=== PATIENT | female | born 1985 | race Caucasian/White ===

== ENCOUNTER 2019-01-17 10:37 | Inpatient (IN) | payer BC ==
[2019-01-17 11:20] LABS: Basophils % (A) 0 %; Eosinophils % (A) 1 %; HCT 31.5 % (34.0-46.0); HGB 11.1 gm/dL (11.4-16.0); Lymphocytes # (A) 1.4 k/uL (1.0-4.8); Lymphocytes % (A) 16 %; MCH 31.1 pg (25.0-35.0); MCHC 35.3 g/dL (31.0-37.0); MCV 88.1 fL (80.0-100.0); Mean Platelet Volume 7.5; Monocytes # (A) 0.4 k/uL (0-1.0); Monocytes % (A) 4 %; Neutrophils % (A) 78 %; Platelet Count 262 k/uL (150-450); Poikilocytosis Slight; RBC 3.57 m/uL (3.80-5.40); RDW 14.2 % (11.5-15.5); WBC 8.9 k/uL (3.8-10.6)
[2019-01-17 11:36] LABS: Appearance,Urine Clear (Clear); Bilirubin,Urine Negative (Negative); Blood,Urine Negative (Negative); Color,Urine Light Yellow; Glucose,Urine (UA) Negative (Negative); Ketones,Urine Negative (Negative); Leukocyte Esterase,Urine Negative (Negative); Nitrite,Urine Negative (Negative); PH, Urine 7.5 (5.0-8.0); Protein,Urine Negative (Negative); Specific Gravity,Urine 1.005 (1.001-1.035); Urobilinogen,Urine <2.0 mg/dL (<2.0)
[2019-01-17 11:38] LABS: ALT 28 U/L (9-52); AST 17 U/L (14-36); Blood Urea Nitrogen 5 mg/dL (7-17); LDH 476 U/L (313-618); Uric Acid 4.4 mg/dL (3.7-7.4)
[2019-01-17] MEDS ORDERED: LIDOCAINE 0.5% (PF) 5 MG/ML (50 ML SDV) SQ PRN (12:39)
[2019-01-17] MEDS ORDERED: OXYTOCIN 10 UNIT/ML 1 ML VIAL IM PRN (12:39)
[2019-01-17] MEDS ORDERED: TERBUTALINE 1 MG/ML VIAL SQ PRN (12:39)
[2019-01-17] MEDS ORDERED: PENICILLIN G POTASSIUM 5,000,000 UNIT in DEXTROSE 5% IN WATER 100 ML IVPB STA ×2 (12:39)
[2019-01-17] MEDS ORDERED: CARBOPROST TROMETHAMINE 250 MCG/ML 1 ML AMP IM PRN (12:39)
[2019-01-17] MEDS ORDERED: METHYLERGONOVINE 0.2 MG/ML 1 ML AMP IM PRN (12:39)
[2019-01-17] MEDS ORDERED: BUTORPHANOL 1 MG/ML 1 ML VIAL IV PRN (12:41)
[2019-01-17] MEDS ORDERED: OXYTOCIN 30 UNITS/500 ML NS 30 UNIT in SALINE 1 500ML.BAG IV SCH (12:45)
[2019-01-17] MEDS: LACTATED RINGERS 1,000 ML IV SCH ×2 (13:06→21:06)
[2019-01-17 14:14] VITALS: BMI 28.0
[2019-01-17] MEDS ORDERED: LABETALOL 5 MG/ML VIAL MDV IVP PRN ×2 (14:57)
[2019-01-17] MEDS ORDERED: hydrALAZINE HCL 20 MG/ML 1 ML VIAL IVP PRN ×2 (14:57)
[2019-01-17] MEDS ORDERED: LABETALOL SYRINGE 5 MG/ML IVP PRN ×2 (16:09)
[2019-01-17] MEDS ORDERED: MAGNESIUM SULFATE-WATER PMX 4 GM in WATER FOR INJECTION 1 100ML.BAG IVPB ONE (16:15)
[2019-01-17] MEDS: MAGNESIUM SULFATE-WATER PMX 20 GM in WATER FOR INJECTION 1 500ML.BAG IV SCH (16:34)
[2019-01-17] MEDS: PENICILLIN G POTASSIUM 2,500,000 UNIT in DEXTROSE 5% IN WATER 100 ML IVPB SCH ×4 (17:45→21:06)
--- NOTE | 2019-01-17 18:38 | P.HPOB ---
History of Present Illness H&P Date: 01/17/19 Chief Complaint: 37-2/7 weeks, severe preeclampsia The patient is a 33-year-old 11 para 7037 admitted at 37-2/7 weeks with dating established early in the in another practice. She transferred care to our practice at approximately 25 weeks of . She carries a history of multiple episodes of -induced hypertension and 7 preeclampsia, typically at full-term. Her to this point has been relatively uncomplicated though she is group B strep positive. She was seen in the office today at which time her blood pressure was mildly elevated. She was sent to labor and delivery for evaluation at which time labs were within normal limits. However, she developed increasingly elevated blood pressures in the range of 180/80-90 and required intervention with hydralazine and then subsequently labetalol as well which has not controlled her blood pressures. She was additionally started on magnesium sulfate secondary to her significantly high blood pressures. Pitocin augmentation has been started and she has undergone artificial rupture of membranes. On labor and delivery, all signs reassuring with category 1 heart tones. Amniotic fluid is clear. Antibiotics have been on board for 4 hours at this time. Obstetrical history: 11 para 78054 previous term normal vaginal deliveries and 3 previous early miscarriages. Current statistics are listed in history of present illness. EDC of 02/05/2019 was established at a previous practice by last menstrual period and confirmed by second trimester ultrasound. Laboratory workup demonstrates a blood type of B+ with a negative antibody screen. Rubella status is immune. Remainder of the laboratory workup was within normal limits. Early Glucola and second trimester Glucola were within normal limits and group B strep status is positive. Gynecologic history: Unremarkable with no history of any infections to include STDs. Review of Systems Review of systems is confined to history of present illness. 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 Smoking Status: Never smoker Past Alcohol Use History: None Reported Past Drug Use History: None Reported - Past Family History Mother Family Medical History: No Reported History Medications and Allergies Home Medications Medication Instructions Recorded Confirmed Type Pnv,Calcium 72/Iron/Folic Acid 1 each PO DAILY 01/17/19 01/17/19 History [ Plus Tablet] Allergies Allergy/AdvReac Type Severity Reaction Status Date / Time No Known Allergies Allergy Verified 01/17/19 10:48 Exam Vital Signs Temp Pulse Resp BP Pulse Ox 01/17/19 12:16 97.3 F L 79 16 198/95 100 Intake and Output 01/17/19 01/17/19 01/17/19 06:59 14:59 22:59 Other: Weight 76.657 kg In general, this is a well-developed, well-nourished white female in no acute distress. Her heart has a regular rhythm and rate without murmur. Her lungs are clear to auscultation bilaterally in all mart. Her abdomen is gravid, nondistended, has normal active bowel sounds, is soft, nontender, and without any palpable masses aside from uterine fundus. Her extremities are without any cyanosis, clubbing, or significant edema and are nontender to palpation bilaterally. Digital cervical examination demonstrates her cervix to be 3 cm dilated, 70% effaced, with the vertex in presentation at -2 station. Artificial rupture of membranes is carried out demonstrating a significant amount of clear fluid. Results Result Diagrams: 01/17/19 10:59 01/17/19 10:59 Abnormal Lab Results - Last 24 Hours (Table) 01/17/19 01/17/19 01/17/19 Range/Units 10:59 10:59 11:00 RBC 3.57 L (3.80-5.40) m/uL Hgb 11.1 L (11.4-16.0) gm/dL Hct 31.5 L (34.0-46.0) % BUN 5 L (7-17) mg/dL Creatinine 0.47 L (0.52-1.04) mg/dL U Random Total Protein 18 H (<12) mg/dL Assessment and Plan (1) Preeclampsia Current Visit: Yes Status: Acute Code(s): O14.90 - UNSPECIFIED PRE- ECLAMPSIA, UNSPECIFIED TRIMESTER SNOMED Code(s): 046272995 (2) Group B streptococcal infection in Current Visit: Yes Status: Acute Code(s): O98.819 - OTH MATERNAL INFEC/PARASTC DISEASES COMP PREG, UNSP TRI; B95.1 - STREPTOCOCCUS, GROUP B, CAUSING DISEASES CLASSD [facility] SNOMED Code(s): 962933024 Plan: The patient has been admitted for induction of labor. As noted above, her has been uncomplicated until today at which time blood pressures were found to be elevated. They have continued to be significantly elevated on labor and delivery until treated with both hydralazine and subsequently labetalol. Blood pressures are now stable. Magnesium sulfate has been started for the diagnosis of severe preeclampsia. Pitocin augmentation has been started. She will have close maternal and surveillance and expectant management will be practiced. She is a candidate for IV or epidural analgesia should she choose, but has typically not requested either in previous pregnancies.
[2019-01-17] MEDS ORDERED: LANOLIN CREAM 5 GM TUBE TOPICAL PRN (21:01)
[2019-01-17] MEDS ORDERED: HYDROCORTISONE 2.5% RECTAL CREAM 30 GM TUBE RECTAL PRN (21:01)
[2019-01-17] MEDS ORDERED: WITCH HAZEL 1 EACH MED..PAD TOPICAL PRN (21:01)
[2019-01-17] MEDS ORDERED: BENZOCAINE/MENTHOL SPRAY 1 GM/SPRAY AEROSOL TOPICAL PRN (21:01)
[2019-01-17] MEDS ORDERED: SIMETHICONE 80 MG CHEWABLE PO PRN (21:01)
[2019-01-17] MEDS ORDERED: HYDROcodone/APAP 5-325MG 1 EACH TAB PO PRN (21:01)
[2019-01-17] MEDS ORDERED: ACETAMINOPHEN TAB 325 MG TAB PO PRN (21:01)
[2019-01-17] MEDS ORDERED: diphenhydrAMINE 50 MG CAP PO PRN (21:01)
[2019-01-17] MEDS ORDERED: ZOLPIDEM 5 MG TAB PO PRN (21:01)
[2019-01-17] MEDS ORDERED: diphenhydrAMINE 50 MG/ML 1 ML VIAL IVP PRN ×2 (21:01)
[2019-01-17] MEDS ORDERED: HYDROcodone/APAP 7.5-325MG 1 EACH TAB PO PRN (21:01)
[2019-01-17] MEDS ORDERED: diphenhydrAMINE 25 MG CAP PO PRN (21:01)
--- NOTE | 2019-01-17 21:07 | P.PROBDLV ---
Vaginal Delivery Note - . Vaginal Delivery Note: The patient is a 33-year-old 11 para 7037 admitted at 37-2/7 weeks by good dating parameters. She is admitted with a diagnosis of severe preeclampsia based upon blood pressures ranging in the 180/80-90 range requiring intervention with first hydralazine, then labetalol. Magnesium sulfate was started for seizure prophylaxis. Because of group B strep positivity, antibiotic prophylaxis was started and Pitocin begun as well. She did not undergo artificial rupture of membranes until 4 hours following the dose of antibiotic. She then fairly quickly went into active labor and progressed through the active phase very quickly to complete and then pushed over the course of 1 contraction to a normal spontaneous vaginal delivery of a viable 7 lbs. 2 oz. baby girl with Apgars of 9 at 1 minute and 10 at 5 minutes delivered in the left occiput anterior position. The placenta was delivered spontaneously, intact, and grossly normal with a grossly normal, centrally inserted three-vessel cord. There were no lacerations of the perineum, vagina, or cervix. Estimated blood loss for the entire case was approximately 100 mL. There were no complications. All sponge, instrument, and needle counts were correct. Both mother and infant are resting comfortably in recovery. Magnesium sulfate will be continued for 24 hours following delivery.
[2019-01-17] MEDS ORDERED: OXYTOCIN 20 UNITS/1000 ML NS 1,000 ML IV SCH (21:15)
[2019-01-18] MEDS: MAGNESIUM SULFATE-WATER PMX 20 GM in WATER FOR INJECTION 1 500ML.BAG IV SCH ×2 (03:03→13:27)
--- NOTE | 2019-01-18 08:27 | P.PNOBGVD ---
Subjective - Subjective Principal diagnosis: PPD 1 Interval history: Patient did well overnight. She does note a mild headache. She remained on magnesium sulfate infusion secondary to preeclampsia. Blood pressures this morning 130s to 150s over 70s to 80s. Patient denies discomfort this morning and states she is overall feeling well. I/O's are reviewed and normal this morning. Patient reports: Reports appetite normal, Reports pain well controlled, Denies nauseated [place]: doing well (At the bedside) Objective - Latest Vital Signs Latest vital signs: Vital Signs Temp Pulse Resp BP Pulse Ox 01/18/19 07:00 74 15 151/85 98 01/18/19 06:00 84 15 131/72 98 01/18/19 05:00 82 16 111/56 98 01/18/19 04:00 98 F 88 16 139/70 99 01/18/19 03:00 87 15 138/76 98 01/18/19 02:00 92 15 140/81 98 01/18/19 01:00 85 15 118/59 98 01/18/19 00:00 99.7 F H 96 15 136/76 98 01/17/19 23:00 89 15 143/73 98 01/17/19 22:30 82 15 150/79 98 01/17/19 22:00 76 15 150/79 99 01/17/19 21:45 81 15 154/83 98 01/17/19 21:30 81 15 154/83 98 01/17/19 21:15 84 15 153/88 98 01/17/19 21:00 99.9 F H 89 15 156/93 01/17/19 12:16 97.3 F L 79 16 198/95 100 Intake and Output 01/17/19 01/18/19 01/18/19 22:59 06:59 14:59 Intake Total 1200 Output Total 1300 1500 Balance -1300 -300 Intake: Intake, IV Titration 1200 Amount Magnesium Sulfate-Water 500 Pmx 20 gm In Water For Injection 1 500ml.bag @ 2 GM/HR 50 mls/hr IV .Q10H RUTH Rx#:[id number] Oxytocin 20 Units/1000 ml 700 Ns 1,000 ml @ Per Protocol IV .Q0M RUTH Rx#: [id number] Output: Urine 1200 1500 Estimated Blood Loss 100 Other: # Voids 2 - Exam Lungs: bilateral: normal Extremities: Present: normal Abdomen: Present: normal appearance, soft Uterus: Present: normal, firm - Labs Labs: Abnormal Lab Results - Last 24 Hours (Table) 01/17/19 01/17/19 01/17/19 Range/Units 10:59 10:59 11:00 RBC 3.57 L (3.80-5.40) m/uL Hgb 11.1 L (11.4-16.0) gm/dL Hct 31.5 L (34.0-46.0) % BUN 5 L (7-17) mg/dL Creatinine 0.47 L (0.52-1.04) mg/dL U Random Total Protein 18 H (<12) mg/dL Assessment and Plan (1) Advanced maternal age (AMA) in Current Visit: Yes Status: Acute Code(s): MFK3188 - SNOMED Code(s): 233510955 (2) Group B streptococcal infection in Current Visit: Yes Status: Acute Code(s): O98.819 - OTH MATERNAL INFEC/PARASTC DISEASES COMP PREG, UNSP TRI; B95.1 - STREPTOCOCCUS, GROUP B, [facility] Code(s): 964428268 (3) Normal spontaneous vaginal delivery Current Visit: Yes Status: Acute Code(s): O80 - ENCOUNTER FOR FULL-TERM UNCOMPLICATED DELIVERY SNOMED Code(s): 88031308 (4) Preeclampsia Current Visit: Yes Status: Acute Code(s): O14.90 - UNSPECIFIED PRE- ECLAMPSIA, UNSPECIFIED TRIMESTER SNOMED Code(s): 700353696 Plan: Will continue magnesium sulfate infusion for 24 hours total, awaiting preeclampsia labs this morning. Patient does look well overall this morning and I anticipate she will be able to go home tomorrow morning.
[2019-01-18 08:41] LABS: ALT 20 U/L (9-52); AST 17 U/L (14-36); Blood Urea Nitrogen 7 mg/dL (7-17); LDH 514 U/L (313-618)
[2019-01-18 08:45] LABS: Basophils % (A) 0 %; Eosinophils # (A) 0.1 k/uL (0-0.7); Eosinophils % (A) 1 %; HCT 29.7 % (34.0-46.0); HGB 10.4 gm/dL (11.4-16.0); Lymphocytes # (A) 1.7 k/uL (1.0-4.8); Lymphocytes % (A) 11 %; MCH 31.1 pg (25.0-35.0); MCHC 35.1 g/dL (31.0-37.0); MCV 88.6 fL (80.0-100.0); Mean Platelet Volume 7.5; Monocytes # (A) 0.6 k/uL (0-1.0); Monocytes % (A) 4 %; Neutrophils # (A) 12.2 k/uL (1.3-7.7); Neutrophils % (A) 83 %; Platelet Count 283 k/uL (150-450); RBC 3.35 m/uL (3.80-5.40); RDW 14.1 % (11.5-15.5); WBC 14.7 k/uL (3.8-10.6)
[2019-01-18] MEDS: SENNOSIDES-DOCUSATE SODIUM 1 EACH TAB PO SCH (19:45)
[2019-01-18] MEDS: LABETALOL 100 MG TAB PO SCH ×2 (20:53→22:56)
--- NOTE | 2019-01-18 23:20 | P.PN ---
Subjective Progress Note Date: 01/18/19 Principal diagnosis: day #1 Patient denies headache, visual changes, or right upper quadrant pain. Objective - Vital Signs Vital signs: Vital Signs Temp 98.2 F 01/18/19 19:48 Pulse 166 H 01/18/19 19:48 Resp 16 01/18/19 19:48 BP 154/87 01/18/19 16:00 Pulse Ox 99 01/18/19 19:48 Intake & Output 01/18/19 01/18/19 01/19/19 06:59 18:59 06:59 Intake Total 1200 1380 Output Total 2400 2300 Balance -1200 -920 Intake: IV 680 Invasive Line 1 80 Lactated Ringers 1,000 ml 600 @ 20 mls/hr IV .Q24H RUTH Rx#:[id number] Intake, IV Titration 1200 700 Amount Magnesium Sulfate-Water 500 500 Pmx 20 gm In Water For Injection 1 500ml.bag @ 2 GM/HR 50 mls/hr IV .Q10H RUTH Rx#:[id number] Magnesium Sulfate-Water 200 Pmx 4 gm In Water For Injection 1 100ml.bag @ 300 mls/hr IVPB ONCE ONE Rx#:[id number] Oxytocin 20 Units/1000 ml 700 Ns 1,000 ml @ Per Protocol IV .Q0M RUTH Rx#: [id number] Output: Urine 2300 2300 Estimated Blood Loss 100 Other: # Voids 2 2 - Constitutional General appearance: Present: average body habitus, cooperative - EENT Eyes: Present: PERRLA ENT: Present: hearing grossly normal - Neck Neck: Present: normal ROM Thyroid: bilateral: normal size - Respiratory Respiratory: right: CTA - Cardiovascular Rhythm: regular - Gastrointestinal General gastrointestinal: Present: normal bowel sounds - Genitourinary Genitourinary Comment(s): Fundus firm, midline, symmetric, 18 week size, nontender. - Integumentary Integumentary Comment(s): Trace peripheral edema. 3+ reflexes bilaterally, no clonus. Integumentary: Present: normal - Neurologic Neurologic: Present: CNII-XII intact - Musculoskeletal Musculoskeletal: Present: gait normal, strength equal bilaterally - Psychiatric Psychiatric: Present: A&O x's 3, appropriate affect, intact judgment & insight - Labs CBC & Chem 7: 01/18/19 08:18 01/18/19 08:18 Labs: Abnormal Lab Results - Last 24 Hours (Table) 01/18/19 01/18/19 Range/Units 08:18 08:18 WBC 14.7 H (3.8-10.6) k/uL RBC 3.35 L (3.80-5.40) m/uL Hgb 10.4 L (11.4-16.0) gm/dL Hct 29.7 L (34.0-46.0) % Neutrophils # 12.2 H (1.3-7.7) k/uL Creatinine 0.43 L (0.52-1.04) mg/dL Assessment and Plan Assessment: 24 hours , gestational hypertension, now hypertensive status post 24 hours of magnesium therapy. Plan: Additional 100 mg of labetolol orally now. Change dosage to 200 mg orally, twice a day, next dose due at 9 AM tomorrow morning. Continue care. Possible discharge home tomorrow pending progress. Time with Patient: Less than 30
[2019-01-19] MEDS ORDERED: LABETALOL 200 MG TAB PO SCH (09:00)
--- NOTE | 2019-01-19 09:30 | P.DS ---
Providers Date of admission: 01/17/19 12:27 Expected date of discharge: 01/19/19 Attending physician: Alexandra Nichols Primary care physician: Stated None Hospital Course: This is a 33-year-old female 11 para 7037 EDC 02/05/2019 at 37-2/7 weeks' gestation. Patient was admitted as a direct admit from the office with elevated blood pressures. She has a history of preeclampsia in the past. 24- hour urine had revealed increased proteinuria. Blood type is B+, rubella status immune. Group B strep cultures positive. Please see dictated history and physical for details. Artificial amniorrhexis revealed clear fluid. Patient progressed and delivered vaginally a liveborn female infant with scores of 9 and 10 at one and 5 minutes respectively. weighed 7 lbs. 2 oz. or 3230 g. Estimated blood loss recorded at 100 mL, no lacerations noted. Please see dictated delivery note for details. On admission blood pressure was 180/87. Labetalol was started, 100 mg twice daily. Pressures remained somewhat elevated, and increased the labetalol dose to 200 mg twice daily. This morning the patient feels well. She has 2+ lower extremity reflexes. She has no edema. She has no right upper quadrant pain, headache, or visual changes. Minimal lochia rubra is noted. Breast-feeding is going well. Chest is clear in all mart. Blood pressures will be monitored through the morning, and patient will be discharged home later today pending normalization of pressures. I have given her prescription for labetalol 200 mg to continue 1 pill twice daily. She will take her blood pressures at home and record them 1-2 times daily. She will call with any headache, visual changes or right upper quadrant pain. She will call with any fevers shakes or chills, foul smelling or copious lochia, with any pain not alleviated by [id number] Motrin products, or indeed with any concerns. She will follow-up in the office in 1 week for blood pressure check and labetalol management as appropriate. Patient Condition at Discharge: Good Plan - Discharge Summary Discharge Rx Participant: No New Discharge Prescriptions: No Action Pnv,Calcium 72/Iron/Folic Acid [ Plus Tablet] 1 each PO DAILY Discharge Medication List Pnv,Calcium 72/Iron/Folic Acid [ Plus Tablet] 1 each PO DAILY 01/17/19 [History] Follow up Appointment(s)/Referral(s): Alexandra Nichols DO [Doctor of Osteopathic Medicine] - 1 Week Discharge Disposition: HOME SELF-CARE
[2019-01-19] MEDS: SENNOSIDES-DOCUSATE SODIUM 1 EACH TAB PO SCH (22:02)
[2019-01-20] MEDS ORDERED: hydrALAZINE HCL 20 MG/ML 1 ML VIAL IVP PRN ×2 (00:18)
[2019-01-20] MEDS ORDERED: LABETALOL SYRINGE 5 MG/ML IVP PRN (00:18)
[2019-01-20] MEDS: SENNOSIDES-DOCUSATE SODIUM 1 EACH TAB PO SCH ×3 (01:06→19:16)
[2019-01-20] MEDS: hydrALAZINE HCL 25 MG TAB PO SCH ×3 (01:13→16:02)
--- NOTE | 2019-01-20 01:27 | P.CONS ---
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 She was seen in labor and deliver and required IV hydralazine and labetalol to control her blood pressures. She was started on magnesium sulfate due to elevated blood pressure. She had a vaginal delivery on 01/17 and magnesium sulfate was continued for an additional 24 hours. She was started on 100 mg of labetalol but remained hypertensive and this was increased to 200mg. This was ineffective and she was transitioned to nifedipine xL on the evening of 01/19. Over the courseof the evening of 01/19 her BP elevated to approximately 185/110 requiring IV hydralazine and we were consulted for hypertensive management. Patient seen and examined at bedside. She is feeling well and states that she does not feel like she just delivered a baby. She denies and headache, chest pain, or shortness of breath. She is not having any numbness of tingling in her hands or arms. She has no other complaints at this time. She does breast feed and plans to keep breast feeding. She has a hx of preeclampsia in the past but has never had to be on oral medications for blood pressure. She denies any essential HTN. She has not family hx of HTN or cardiac disease. She has no pain at this time and has not needed any pain medications. She denies any anxiety. She has not need able to sleep. Review of Systems Pertinent positives and negatives as discussed in HPI, a complete review of systems was performed and all other systems are negative. 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 - Past Family History Mother Family Medical History: No Reported History Additional Family Medical History / Comment(s): Denies any family hx of HTN or cardiac disease Medications and Allergies Home Medications Medication Instructions Recorded Confirmed Type Pnv,Calcium 72/Iron/Folic Acid 1 each PO DAILY 01/17/19 01/17/19 History [ Plus Tablet] Allergies Allergy/AdvReac Type Severity Reaction Status Date / Time No Known Allergies Allergy Verified 01/17/19 10:48 Physical Exam Osteopathic Statement: *. No significant issues noted on an osteopathic structural exam other than those noted in the History and Physical/Consult. Vitals: Vital Signs Temp Pulse Resp BP BP 01/19/19 22:01 153/90 01/19/19 20:00 76 152/82 01/19/19 18:14 73 140/73 01/19/19 16:15 159/77 152/84 01/19/19 14:19 172/83 142/88 01/19/19 12:00 137/67 158/84 01/19/19 10:26 141/93 01/19/19 08:00 98.2 F 67 16 141/87 01/19/19 05:39 153/92 01/19/19 04:00 136/78 01/19/19 02:11 136/76 Intake and Output 01/19/19 01/19/19 01/20/19 14:59 22:59 06:59 Other: # Voids 1 2 General: non toxic, no distress, appears at stated age, normal weight Derm: no unusual rashes/lesions no unusual ecchymoses, warm, dry Head: atraumatic, normocephalic, symmetric Eyes: EOMI, no lid lag, anicteric sclera, ENT: Nose and ears atraumatic, no thrush, no pharyngeal erythema Neck: No thyromegaly, no cervical lymphadenopathy, trachea midline, supple Mouth: no lip lesion, mucus membranes moist Cardiovascular: S1S2 reg, no murmur, positive posterior tibial pulse bilateral, trace edema, capillary refill less than 2 seconds Lungs: CTA bilateral, no rhonchi, no rales , no accessory muscle use Abdominal: soft, nontender to palpation, no guarding, no appreciable organomegaly, normal bowel sounds Ext: no gross muscle atrophy, muscle strength 5 out of 5 in all 4 extremities grossly, no contractures, Neuro: CN II-XI grossly intact, light touch intact all 4 extremities, reflexes 3/4 b/l patellar Psych: Alert, oriented, appropriate affect Results CBC & Chem 7: 01/18/19 08:18 01/18/19 08:18 Assessment and Plan Assessment: Preeclampsia - Continue with nifedipine - given 5 mg of IV hydralazine at time of consult. BP still elevated at 172 but decreased 20 minutes later. Start Hydralazine 25 mg TID now as this is easy to titrate and safe in breast feeding. - Follow blood pressures closely. May need to increase dose later today if remains elevated - Patient will take blood pressures at home with monitor. - Follow up with Dr. De La [facility] from [facility] after discharge. Anticipate that BP should normalize over the course of 12 weeks, if does not she may have a component of essential HTN. - Consider parameters for hydralazine on discharge. Advanced maternal age Thank you for allowing us to participate in the care of this patient. Do not he sitate to contact us with questions. Someone can be reached from the [facility] [place] [facility] hospitalist group at all hours of the day at [phone].
--- NOTE | 2019-01-20 08:46 | P.PN ---
Subjective Progress Note Date: 01/20/19 Principal diagnosis: day #3, severe preeclampsia This is a 33-year-old white female 11 para 8038, status post induction for severe preeclampsia and vaginal . Patient required IV hydralazine on admission, but went on to deliver vaginally a liveborn female . She was treated with magnesium sulfate for 24 hours. Her blood pressure remained high after delivery, she was started on labetalol 100 mg twice daily orally. This is increased to 200 mg twice daily. By pressures still remained high, 160s to 180s over the 90-100 range. Medication was changed to Procardia 60 mg XL once daily. Again blood pressures remained elevated and I consulted the [facility] hospitalist team for their recommendation. IV hydralazine once again was given, and the patient was placed on oral hydralazine 25 mg 3 times daily. Discharge was scheduled for yesterday, but was canceled subsequent to continued hypertension. This morning the patient feels well. She is slightly hyperreflexic at 3+, no clonus, otherwise physical exam is within normal limits, chest is clear, there is no peripheral edema. [place] is doing well. Patient denies headache, visual changes or right upper quadrant pain, she is anxious for discharge home secondary to 7 other children a t home. At this time I believe she is in stable condition for discharge home. She is a very reliable patient, a telemetry nurse, and understands to call with any headache, visual changes, or right upper quadrant pain. She is given a prescription for Procardia 60 mg XL, 1 by mouth at 9 AM, hydrala zine 25 mg 3 times a day, and Anusol HC suppositories to use as needed. Patient has a sphygmomanometer at home and will take her blood pressure is 1-2 times daily, right them down, and bring them to the office in 1 week for follow-up. [place] will follow-up with fingerer as recommended. Objective - Vital Signs Vital signs: Vital Signs Temp 98 F 01/20/19 00:00 Pulse 71 01/20/19 00:00 Resp 16 01/20/19 00:00 BP 138/87 01/20/19 06:53 Pulse Ox 98 01/20/19 00:00 Intake & Output 01/19/19 01/20/19 01/20/19 18:59 06:59 18:59 Other: # Voids 2 - Constitutional General appearance: Present: average body habitus, cooperative - EENT Eyes: Present: PERRLA ENT: Present: hearing grossly normal - Respiratory Respiratory: bilateral: CTA - Cardiovascular Rhythm: regular - Gastrointestinal Gastrointestinal Comment(s): Fundus firm, midline, symmetric, 18 week size - Integumentary Integumentary: Present: normal - Neurologic Neurologic Comment(s): +3 lower extremity reflexes, no clonus, no edema. Neurologic: Present: CNII-XII intact - Musculoskeletal Musculoskeletal: Present: gait normal, generalized weakness, strength equal bilaterally - Psychiatric Psychiatric: Present: A&O x's 3, appropriate affect, intact judgment & insight - Labs CBC & Chem 7: 01/18/19 08:18 04 08:18 Assessment and Plan Assessment: Status post vaginal delivery 3 days ago with severe preeclampsia, residual hypertension. Now controlled on to medications orally. Plan: Continue blood pressure checks today, likely discharge home later this evening. I have given her 3 prescriptions, Anusol HC suppositories to be used as needed, Procardia XL 60 mg to be taken once daily at 9 AM, hydralazine 25 mg to be taken orally 3 times a day. I have reviewed with this patient multiple options for contraception, and and strongly recommending no further pregnancies. She will follow-up with her primary roll skinner in the office in 1 week with blood pressure logs from home. Preeclamptic signs and symptoms, as well as blood pressure parameters have been reviewed with the patient in detail. Time with Patient: Greater than 30
[2019-01-20] MEDS: IBUPROFEN 600 MG TAB PO PRN ×2 (10:52→17:39)
[2019-01-20 11:32] LABS: Basophils % (A) 0 %; Eosinophils # (A) 0.2 k/uL (0-0.7); Eosinophils % (A) 1 %; HCT 35.7 % (34.0-46.0); Lymphocytes % (A) 15 %; MCHC 33.7 g/dL (31.0-37.0); MCV 89.2 fL (80.0-100.0); Mean Platelet Volume 6.8; Monocytes # (A) 0.5 k/uL (0-1.0); Monocytes % (A) 3 %; Neutrophils # (A) 10.7 k/uL (1.3-7.7); Neutrophils % (A) 79 %; Platelet Count 320 k/uL (150-450); RBC 4.01 m/uL (3.80-5.40); RDW 13.7 % (11.5-15.5); WBC 13.5 k/uL (3.8-10.6)
[2019-01-20 11:42] LABS: ALT 24 U/L (9-52); AST 18 U/L (14-36)
--- NOTE | 2019-01-20 14:49 | P.PN ---
Progress Note - Text Progress Note Date: 01/20/[address] Galvez BP seems better controlled this morning will continue to monitor into afternoon prescriptions sent for hydralazine and procardia
[2019-01-20] MEDS ORDERED: NIFEdipine XL 30 MG TAB.ER.24 PO STA (19:13)
[2019-01-20 22:50] VITALS: RESP 16
[2019-01-21] MEDS: IBUPROFEN 600 MG TAB PO PRN (03:04)
[2019-01-21 06:20] LABS: ALT 33 U/L (9-52); AST 26 U/L (14-36); Alkaline Phosphatase 90 U/L (38-126); Anion Gap 11 mmol/L; Blood Urea Nitrogen 10 mg/dL (7-17); Calcium 9.4 mg/dL (8.4-10.2); Carbon Dioxide 22 mmol/L (22-30); Chloride 106 mmol/L (98-107); Glucose 90 mg/dL (74-99); Potassium 3.4 mmol/L (3.5-5.1); Sodium 139 mmol/L (137-145); Total Bilirubin 0.3 mg/dL (0.2-1.3); Total Protein 6.9 g/dL (6.3-8.2)
[2019-01-21] MEDS ORDERED: LABETALOL 100 MG TAB PO SCH (08:00)
--- NOTE | 2019-01-21 08:29 | P.DS ---
Providers Date of admission: 01/17/19 12:27 Expected date of discharge: 01/21/19 Attending physician: Alexandra Nichols Consults: 01/20/19 00:12 Consult Physician Routine Consulting Provider: Anh Paez Consult Reason/Comments: elevated blood pressures Do you want consulting provider notified?: Yes, Notify in am Primary care physician: Stated None - Discharge Diagnosis(es) (1) Advanced maternal age (AMA) in Current Visit: Yes Status: Acute (2) Group B streptococcal infection in Current Visit: Yes Status: Acute (3) Normal spontaneous vaginal delivery Current Visit: Yes Status: Acute (4) Preeclampsia Current Visit: Yes Status: Acute Hospital Course: This is a pleasant 33-year-old 11 para [id number] that was admitted at 37-2/7 weeks with gestational hypertension. Patient has a history of this with her prior deliveries in addition. Patient was admitted Pitocin induction was begun patient progressed to complete and had a normal spontaneous vaginal delivery of a viable female 7 lbs. 2 oz. patient's post course has been complicated by severe preeclampsia and inability to control blood pressures. Eventually internal medicine was consulted and blood pressure medications were changed to Procardia. Patient is feeling well this morning she denies headache right upper quadrant pain swelling is improving. Overall patient looks well and she does wish to be discharged home. She is proceeding without difficulty she is ambulating and voiding without difficulty and she denies nausea or vomiting. Patient Condition at Discharge: Good Plan - Discharge Summary Discharge Rx Participant: No New Discharge Prescriptions: New hydrALAZINE HCL [Apresoline] 25 mg PO TID #90 tab NIFEdipine XL [Procardia XL] 60 mg PO DAILY #30 tab.er.24 No Action Pnv,Calcium 72/Iron/Folic Acid [ Plus Tablet] 1 each PO DAILY Discharge Medication List Pnv,Calcium 72/Iron/Folic Acid [ Plus Tablet] 1 each PO DAILY 01/17/19 [History] NIFEdipine XL [Procardia XL] 60 mg PO DAILY #30 tab.er.24 01/20/19 [Rx] hydrALAZINE HCL [Apresoline] 25 mg PO TID #90 tab 01/20/19 [Rx] Follow up Appointment(s)/Referral(s): Adriana De La Cruz MD [REFERRING] - 1 Week Alexandra Nichols DO [Doctor of Osteopathic Medicine] - 1 Week Care Plan Goals (MU): continue to monitor blood pressure at home BP meds prescription sent to preferred pharmacy Discharge Disposition: HOME SELF-CARE
[2019-01-21] MEDS ORDERED: NIFEdipine XL 90 MG TAB.ER.24 PO SCH (09:00)
[2019-01-21] MEDS: SENNOSIDES-DOCUSATE SODIUM 1 EACH TAB PO SCH (09:10)
[2019-01-21 10:06] VITALS: PULSE 90
--- NOTE | 2019-01-21 11:10 | P.PN ---
Subjective Progress Note Date: 01/21/19 Patient seen and examined at bedside breast-feeding her , denies any headache, denies any right upper quadrant pain. Patient ready for discharge. Patient blood pressure have been above goal This morning. Objective - Vital Signs Vital signs: Vital Signs Temp 98.4 F 01/21/19 09:00 Pulse 90 01/21/19 10:06 Resp 16 01/21/19 09:00 BP 157/91 01/21/19 10:06 Pulse Ox 98 01/21/19 05:42 Intake & Output 01/20/19 01/21/19 01/21/19 18:59 06:59 18:59 Other: # Voids 4 2 1 - Exam Constitutional: No acute distress, conversant, pleasant Eyes: Anicteric sclerae, moist conjunctiva, no lid-lag, PERRLA ENMT: NC/AT,Oropharynx clear, no erythema, exudates Neck:Supple, FROM, no masses, or JVD, No carotid bruits; No thyromegaly Lungs: Clear to auscultation, Clear to percussion, Normal respiratory effort, no accessory muscle use Cardiovascular: Heart regular in rate and rhythm, No murmurs, gallops, or rubs no peripheral edema Abdominal: Soft Nontender, nom distended, no guarding, no rebound or rigidity, Normoactive bowel sounds No hepatomegaly, No splenomegaly, No palpable mass No abdominal wall hernia noted Skin: Normal temperature, tone, texture, turgor, No induration No subcutaneous nodules, No rash, lesions, No ulcers Extremities:No digital cyanosis No clubbing, Pedal pulses intact and symmetrical Radial pulses intact and symmetrical Normal gait and station, No calf tenderness Neuro: Muscles Strength 5/5 in all 4 extremities, Sensation to light touch grossly present throughout, Cranial nerves II-XII grossly intact. 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
[2019-01-21 13:47] VITALS: BP 151/91; TEMP 98
[2019-01-21] MEDS ORDERED: NIFEdipine XL 30 MG TAB.ER.24 PO SCH (21:00)
== END 2019-01-21 12:15 | disposition home or self-care (01) | DRG 807 ==
LOC: FBPOP 10:37 → 4FBP 12:27
PROVIDERS: ADMIT Obstetrics & Gynecology Obstetrics; ATTEND Obstetrics & Gynecology Obstetrics
PROC: 10E0XZZ Delivery of Products of Conception, External Approach (ICD-10-PCS; principal; 2019-01-17)
PROC: 10907ZC Drainage of Amniotic Fluid, Therapeutic from Products of Conception, Via Natural or Artificial Opening (ICD-10-PCS; 2019-01-17)
DX: O14.14 Severe pre-eclampsia complicating childbirth (principal); Z37.0 Single live birth; Z3A.37 37 weeks gestation of pregnancy; O99.824 Streptococcus B carrier state complicating childbirth; Z86.59 Personal history of other mental and behavioral disorders; Z79.899 Other long term (current) drug therapy
CPT/HCPCS: 59025; 80053; 81003; 82565; 82570; 83615; 84156; 84450; 84460; 84520; 84550; 85025; 86850; 86900; 86901; 88307

== ENCOUNTER → 2020-06-19 | Outpatient (CLI) | payer BC ==
--- NOTE | 2020-06-19 13:58 | USB ---
Reason for exam: clinical finding. Indicated problem(s): lump or thickening and pain in the left breast. Physical Findings: Nurse did not find any significant physical abnormalities on exam. US Breast LT Left complete breast ultrasound includes all four quadrants, the retroareolar region and axilla. Finding demonstrates a 0.7 x 0.3 x 0.5cm lymph node at 1 o'clock and a 0.5 x 0.3 x 0.5cm lymph node at 1 o'clock. These results were verbally communicated with the patient and result sheet given to the patient on 06/19/20. ASSESSMENT: Benign, BI-RAD 2 RECOMMENDATION: Clinical management of the left breast. Manage patient on a clinical basis.
== END | disposition home or self-care (01) ==
LOC: RADUSWWP 12:46
PROVIDERS: ATTEND Obstetrics & Gynecology Obstetrics
DX: N63.20 Unspecified lump in the left breast, unspecified quadrant (principal)

== ENCOUNTER 2021-08-10 08:18 | Day surgery (SDC) | payer BC ==
[2021-08-05 16:14] VITALS: BMI 24.1
[~2021-08-10 08:18] MED LIST: DEXAMETHASONE SOD PHOSPHATE 4 MG/ML 1 ML VIAL IV ONE; HYDROmorphone 0.5 MG/0.5 ML SYRINGE IVP PRN; LACTATED RINGERS 1,000 ML IV SCH; ONDANSETRON 4 MG/2 ML VIAL IVP ONE; Pre Op ABX Message 1 EACH MISC MISCELLANE ONE
[2021-08-10] MEDS ORDERED: LIDOCAINE 1% (10MG/ML) FOR IV START INTRADERMA ONE (08:57)
[2021-08-10 09:11] LABS: Basophils % (A) 0 %; Eosinophils # (A) 0.1 k/uL (0-0.7); Eosinophils % (A) 1 %; HCT 38.6 % (34.0-46.0); HGB 12.8 gm/dL (11.4-16.0); Lymphocytes # (A) 1.8 k/uL (1.0-4.8); Lymphocytes % (A) 13 %; MCH 28.4 pg (25.0-35.0); MCHC 33.2 g/dL (31.0-37.0); MCV 85.6 fL (80.0-100.0); Mean Platelet Volume 7.4; Monocytes # (A) 0.3 k/uL (0-1.0); Monocytes % (A) 2 %; Neutrophils # (A) 11.6 k/uL (1.3-7.7); Neutrophils % (A) 83 %; Platelet Count 303 k/uL (150-450); RBC 4.51 m/uL (3.80-5.40); RDW 13.1 % (11.5-15.5)
[2021-08-10] MEDS ORDERED: LIDOCAINE 1% INJ 10MG/ML (20 ML MDV) ONE (10:30)
[2021-08-10] MEDS ORDERED: fentaNYL (PF) 50 MCG/ML 2 ML AMP ONE (10:30)
[2021-08-10] MEDS ORDERED: KETOROLAC 15 MG/ML 1 ML VIAL ONE (10:30)
[2021-08-10] MEDS ORDERED: PROPOFOL 10 MG/ML 20 ML VIAL IV ONE (10:30)
[2021-08-10] MEDS ORDERED: MIDAZOLAM 2 MG/2 ML VIAL ONE (10:30)
[2021-08-10 11:08] VITALS: TEMP 97.9
--- NOTE | 2021-08-10 11:11 | P.OP ---
Date of Procedure: 08/10/21 Preoperative Diagnosis: Dysfunctional uterine bleeding, endometrial polyp Postoperative Diagnosis: Same Procedure(s) Performed: Hysteroscopy, dilation and curettage, polypectomy Anesthesia: MAC Surgeon: Alexandra Nichols Estimated Blood Loss (ml): 5 IV fluids (ml): 100 Urine output (ml): 100 Pathology: other (Endometrial curettings) Condition: stable Disposition: PACU Indications for Procedure: This linda uterine bleeding, heavy menstrual bleeding, noted endometrial polyp on ultrasound evaluation of the pelvis Operative Findings: Posterior endometrial polyp with thickened endometrial lining appreciated Description of Procedure: Patient was taken back to the operating suite where general anesthesia was obtained without difficulty by the anesthesia department. She was prepped and draped in normal sterile fashion in the dorsal lithotomy position. A red rubber catheter was used to drain the bladder clear yellow urine. A weighted speculum posterior vaginal vault the anterior lip of the cervix is visualized and grasped with a single-tooth tenaculum. The endocervical canal was then serially dilated. The hysteroscope was placed through the cervix and toward the end ometrial cavity the above-noted findings were visualized. A sharp curettage was performed, the polyp was noted to be removed intact. A curettage was performed until a gritty texture was noted in all 4 quadrants of the endometrial cavity. Tissue was sent to pathology for analysis. The single-tooth tenaculum was taken off of the anterior lip of the cervix hemostasis was appreciated. All instrum ents were removed from the patient's vaginal vault. All counts were noted to be correct 2. Patient was taken the recovery room awake in stable condition.
[2021-08-10 11:28] VITALS: RESP 16
[2021-08-10 11:59] VITALS: BP 122/83; PULSE 77
== END 2021-08-10 12:15 | disposition home or self-care (01) ==
LOC: OR 08:18
PROVIDERS: ATTEND Obstetrics & Gynecology Obstetrics
DX: N84.0 Polyp of corpus uteri (principal); N92.0 Excessive and frequent menstruation with regular cycle; N93.8 Other specified abnormal uterine and vaginal bleeding; J45.909 Unspecified asthma, uncomplicated; I10 Essential (primary) hypertension; Z98.890 Other specified postprocedural states
CPT/HCPCS: 81025; 88305; 85025; 58558; J2250; J1100; J2405; J2001; J3010; J1885; J2704; J1170

== ENCOUNTER → 2023-11-03 | Outpatient (CLI) | payer BC ==
--- NOTE | 2023-11-06 09:19 | MM ---
Reason for Exam: Screening (asymptomatic). Baseline mammogram. Patient History: Menarche at age 6. First Full-Term at age 19. Last menstrual period: 11/02/2023 Risk Values: Judie 5 year model risk: 0.5%. NCI Lifetime model risk: 9.9%. Prior Study Comparison: Patient's first Mammogram. Tissue Density: The breast tissue is heterogeneously dense. This may lower the sensitivity of mammography. Findings: Analyzed By CAD. There is no suspicious group of microcalcifications or new suspicious mass in either breast. Overall Assessment: Benign, BI-RAD 2 Management: Screening Mammogram of both breasts in 1 year. . Patient should continue monthly self-breast exams. A clinical breast exam by your physician is recommended on an annual basis. This exam should not preclude additional follow-up of suspicious palpable abnormalities. Note on Judie scores and lifetime risk: 1. A Judie score greater than 3% is considered moderate risk. If this is the case, consider specialist referral to assess eligibility for a risk reducing agent. 2. If overall lifetime risk for the development of breast cancer is 20% or higher, the patient may qualify for future screening with alternating mammogram and breast MRI. Electronically signed and approved by: Braxton Loco M.D. Radiologis
== END | disposition home or self-care (01) ==
LOC: RADMAMWWP 07:03
PROVIDERS: ATTEND Obstetrics & Gynecology Obstetrics
DX: Z12.31 Encounter for screening mammogram for malignant neoplasm of breast (principal)
CPT/HCPCS: 77063; 77067

== ENCOUNTER → 2023-11-08 | Outpatient (CLI) | payer BC ==
[2023-11-09 02:37] LABS: Basophils # (A) 0.05 X 10*3/uL (0.00-0.10); Basophils % (A) 0.5 %; Eosinophils # (A) 0.06 X 10*3/uL (0.04-0.35); Eosinophils % (A) 0.7 %; HCT 36.9 % (37.2-46.3); HGB 11.6 g/dL (12.0-15.0); Lymphocytes # (A) 2.24 X 10*3/uL (0.90-5.00); Lymphocytes % (A) 24.5 %; MCHC 31.4 g/dL (32.0-37.0); MCV 85.8 FL (80.0-97.0); Mean Platelet Volume 10.1 FL (9.5-12.2); Monocytes # (A) 0.57 X 10*3/uL (0.20-1.00); Monocytes % (A) 6.2 %; NRBC Per 100 WBC 0 X 10*3/uL (0.00-0.01); Neutrophils # (A) 6.16 X 10*3/uL (1.80-7.70); Neutrophils % (A) 67.6 %; Platelet Count 345 X 10*3/uL (140-440); RDW 13.4 % (11.5-14.5); WBC 9.13 X 10*3/uL (4.50-10.00)
== END | disposition home or self-care (01) ==
LOC: LABPAT 14:09
PROVIDERS: ATTEND Obstetrics & Gynecology Obstetrics
DX: Z01.812 Encounter for preprocedural laboratory examination (principal); N92.0 Excessive and frequent menstruation with regular cycle; N84.0 Polyp of corpus uteri
CPT/HCPCS: 36415; 85025

== ENCOUNTER 2023-11-10 06:57 | Day surgery (SDC) | payer BC ==
[~2023-11-10 06:57] MED LIST changes: -HYDROmorphone 0.5 MG/0.5 ML SYRINGE IVP PRN; -LACTATED RINGERS 1,000 ML IV SCH; +LIDOCAINE 1% (10MG/ML) FOR IV START INTRADERMA PRN
[2023-11-10] MEDS ORDERED: MIDAZOLAM 2 MG/2 ML VIAL IV PRN (07:00)
[2023-11-10] MEDS ORDERED: HYDROmorphone 0.5 MG/0.5 ML SYRINGE IVP PRN (07:00)
[2023-11-10] MEDS: LACTATED RINGERS 1,000 ML IV SCH (07:38)
[2023-11-10] MEDS: ONDANSETRON 4 MG/2 ML VIAL IVP ONE (07:42)
[2023-11-10] MEDS: DEXAMETHASONE SOD PHOSPHATE 4 MG/ML 1 ML VIAL IVP ONE (07:42)
[2023-11-10] MEDS ORDERED: KETOROLAC 30 MG/ML 1 ML VIAL ONE (08:23)
[2023-11-10] MEDS ORDERED: PROPOFOL 10 MG/ML 20 ML VIAL IV ONE (08:23)
[2023-11-10] MEDS ORDERED: fentaNYL (PF) 50 MCG/ML 2 ML AMP ONE (08:23)
[2023-11-10] MEDS ORDERED: MIDAZOLAM 2 MG/2 ML VIAL ONE (08:23)
[2023-11-10] MEDS: SILVER NITRATE APPLICATOR 1 EACH STICK..EA. TOPICAL ONE (08:36)
--- NOTE | 2023-11-10 09:02 | P.OP ---
Date of Procedure: 11/10/23 Preoperative Diagnosis: Heavy menstrual bleeding, endometrial polyp Postoperative Diagnosis: Same Procedure(s) Performed: Hysteroscopy, dilation and curettage Anesthesia: MAC Surgeon: Alexandra Nichols Estimated Blood Loss (ml): 5 IV fluids (ml): 400 Urine output (ml): 25 Pathology: other (Endometrial curettings) Condition: stable Disposition: PACU Indications for Procedure: Heavy menstrual bleeding, on ultrasound 1 cm endometrial polyp is appreciated. Operative Findings: Proliferative endometrium Description of Procedure: Patient was taken back to the operating suite where general anesthesia was obtained without difficulty by the anesthesia department. She was prepped and draped in the normal sterile fashion in the dorsolithotomy position. A red rubber catheter was used to drain the bladder of clear yellow urine. A weighted speculum was placed in the posterior vaginal vault the anterior lip of the cervix was visualized and grasped with a single-tooth tenaculum. The endocervical canal was then serially dilated. Hysteroscope was placed through the cervix and toward the endometrial cavity. An intact cavity with proliferative endometrium was appreciated. Hysteroscope was removed. Sharp curettage was performed until a gritty texture was noted in all 4 quadrants of the uterine cavity. The specimen was then sent to pathology for analysis. All instruments were removed from the patient's vaginal vault. The single-tooth tenaculum is taken off of the anterior lip of the cervix Smallman of bleeding was noted therefore silver nitrate was applied to the tenaculum site and hemostasis was appreciated. All counts were noted be correct x 2 at the end of the procedure. Patient tolerated procedure well and was taken to recovery awake in stable condition
[2023-11-10 09:13] VITALS: TEMP 97.6
[2023-11-10 09:42] VITALS: BP 135/88; PULSE 66; RESP 20
== END 2023-11-10 10:18 | disposition home or self-care (01) ==
LOC: OR 06:57
PROVIDERS: ATTEND Obstetrics & Gynecology Obstetrics
DX: N84.0 Polyp of corpus uteri (principal); N92.0 Excessive and frequent menstruation with regular cycle; N72 Inflammatory disease of cervix uteri; I20.9 Angina pectoris, unspecified; J45.909 Unspecified asthma, uncomplicated; F41.9 Anxiety disorder, unspecified; F32.A Depression, unspecified; Z79.899 Other long term (current) drug therapy; Z98.890 Other specified postprocedural states
CPT/HCPCS: 58558; 81025; 88305; J2250; J1100; J2405; J3010; J1885; J2704

== ENCOUNTER → 2024-12-12 | Outpatient (CLI) | payer BC ==
--- NOTE | 2024-12-12 07:54 | MM ---
Reason for Exam: Screening (asymptomatic). Last mammogram was performed 1 year(s) and 2 month(s) ago. Patient History: Menarche at age 6. First Full-Term at age 19. Risk Values: Judie 5 year model risk: 0.6%. NCI Lifetime model risk: 9.8%. Prior Study Comparison: 11/03/2023 Bilateral MG 3D screening mammo w/cad, [facility]. Tissue Density: The breasts are heterogeneously dense, which may obscure small masses. Findings: Analyzed By CAD. Unchanged low axillary tail lymph node on the right. There is no suspicious group of microcalcifications or new suspicious mass in either breast. Overall Assessment: Benign, BI-RAD 2 Management: Screening Mammogram of both breasts in 1 year. Patient should continue monthly self-breast exams. A clinical breast exam by your physician is recommended on an annual basis. This exam should not preclude additional follow-up of suspicious palpable abnormalities. Note on Judie scores and lifetime risk: 1. A Judie score greater than 3% is considered moderate risk. If this is the case, consider specialist referral to assess eligibility for a risk reducing agent. 2. If overall lifetime risk for the development of breast cancer is 20% or higher, the patient may qualify for future screening with alternating mammogram and breast MRI. [facility], , 12/12/2024 7:51 AM. Electronically signed and approved by: Angus Wallis M.D. Radiologist
== END | disposition home or self-care (01) ==
LOC: RADMAMWWP 07:12
PROVIDERS: ATTEND Obstetrics & Gynecology Obstetrics
DX: Z12.31 Encounter for screening mammogram for malignant neoplasm of breast (principal); R92.333 Mammographic heterogeneous density, bilateral breasts
CPT/HCPCS: 77063; 77067